=== PATIENT | female | born 1975 | race Caucasian/White ===

== ENCOUNTER 2024-05-09 07:28 | Day surgery (SDC) | payer BC ==
[~2024-05-09] VITALS: Ht 180.3 cm; Wt 68.2 kg
[~2024-05-09 07:28] MED LIST: IBLOOD GLUCOSE TEST STRIP 1 EA TEST VI PRN; LACTATED RINGER'S 1,000 ML IV SCH; LIDOCAINE HCL 1% 5 ML SDV INJ ONE; MIDAZOLAM HCL 5 MG/5 ML VIAL IV PRN; fentaNYL citrate 100 MCG/2 ML VIAL IV PRN
[2024-05-09] MEDS ORDERED: MIDAZOLAM HCL 5 MG/5 ML VIAL ONE (08:37)
[2024-05-09] MEDS ORDERED: fentaNYL citrate 100 MCG/2 ML VIAL ONE (08:38)
--- NOTE | 2024-05-09 09:23 | NUR ---
05/09/24 0923 Zaira,Torri 0917 PT ARRIVED TO PACU ON 2L VIA NC, PT WAKES EASILY AND DENIES CONCERNS. PT ENCOURAGED TO PASS GAS NEEDED.
[2024-05-09 09:41] VITALS: BP 99/67
--- NOTE | 2024-05-11 11:05 | OR ---
[facility] [address], [place] [address] Signed DATE OF OPERATION: 05/09/2024 SURGEON: Bao Shell MD PREOPERATIVE DIAGNOSIS: Colon screening. POSTOPERATIVE DIAGNOSIS: Small non-polyp nodule, right colon (excised). PROCEDURE: Total colonoscopy to cecum with cold morcellation biopsy x1. ANESTHESIA: Intravenous sedation; fentanyl 150 mcg and Versed 5 mg. INDICATION: This 48-year-old white woman is in excellent health. She is a patient of [facility]BAST[facility] Solis. She is referred for screening colonoscopy having never undergone the procedure in the past. She has no symptoms of bleeding, diarrhea, or constipation and no family history of colon cancer. She is admitted at this time to undergo colonoscopy. She understands the risk of bleeding, infection, and perforation. FINDINGS: The prep was excellent. Complete colonoscopy was undertaken of the cecum with full intubation of the cecum. There was a small whitish plaque-like nodule at the proximal ascending colon, but no other finding of note. This lesion was excised. DESCRIPTION OF PROCEDURE: The patient was brought to the endoscopy suite and placed in the lateral decubitus position, given intravenous sedation to the point of slurred speech and nystagmus. Digital rectal examination was normal. An Olympus video colonoscope was passed in the rectum and manipulated throughout the colon ultimately intubating the cecum itself. The colon was somewhat redundant. The ileocecal valve and appendiceal orifice were normal, but in the proximal ascending colon there is a small whitish plaque of the mucosa of uncertain cause. It was excised with cold morcellation technique. Further withdrawal of the scope showed no other abnormality, specifically no polyps, diverticular formation, colitis, or cancer. Retroflexed view was normal as well. The scope was removed and the patient was taken to the recovery room in good condition. Electronically Signed By: BAO SHELL MD 05/11/24 1105 PATIENT NAME: BRIDGETT SANTOS OPERATIVE REPORT DATE OF : 77 REPORT #: [id number] PHYSICIAN: BAO SHELL MD PCP: LILY LASSITER REPORT IS CONFIDENTIAL AND NOT TO BE RELEASED WITHOUT AUTHORIZATION [facility] [address], [place] [address] Signed CONCLUDING DIAGNOSIS: Essentially normal colon; white plaque at proximal ascending colon, excised. PLAN: Would recommend repeat colonoscopy in 10 years, sooner if symptoms should develop. I will check her followup pathology on the biopsy lesion. She will return to the ongoing care of Lily Lassiter. MD HOLLY Orosco/NICCIL /[id number] cc: [facility]ST[facility] Solis Copies: LILY LASSITER ~ Electronically Signed By: BAO SHELL MD 05/11/24 1105 PATIENT NAME: BRIDGETT SANTOS OPERATIVE REPORT DATE OF : 77 REPORT #: [id number] PHYSICIAN: BAO SHELL MD PCP: LILY LASSITER REPORT IS CONFIDENTIAL AND NOT TO BE RELEASED WITHOUT AUTHORIZATION
--- NOTE | 2024-05-11 17:18 | PATH ---
[facility] [address] [place], [place] [address] Signed SPECIMEN(S): A ASCENDING/RIGHT COLON BIOPSY SPECIMEN SOURCE: A. ASCENDING/RIGHT COLON BIOPSY CLINICAL HISTORY: Pre: Initial screening colonoscopy. Post: Nodule right colon. FINAL PATHOLOGIC DIAGNOSIS: Ascending/right colon biopsy: - Benign colonic mucosa with reactive features, negative for dysplasia or pathologic inflammation. - Incidental mucosal lymphoid aggregate. JVR:hilaria MICROSCOPIC EXAMINATION: Histologic sections of all submitted blocks are examined by light microscopy. These findings, together with the gross examination, support the pathologic diagnosis. GROSS DESCRIPTION: The specimen, labeled and designated "Armenian, S, ascending right colon biopsy," is received in formalin and consists of four alcantara soft tissue fragments, ranging from 0.2-0.7 cm. Entirely submitted in (A1). HS (under the direct supervision of a pathologist) The Gross Description was prepared using a voice recognition system. The report was reviewed for accuracy; however, sound-alike word errors, addition and/or deletions may occur. If there is any question about this report, please contact Client Services. ADDITIONAL NOTES: Immunohistochemical and/or in situ hybridization studies if performed in this case included appropriate positive controls that reacted as expected. This test was developed and its performance characteristics determined by [employer]. It has not been cleared or approved by the U.S. Food and Drug Administration. The FDA has determined that such clearance or approval is not necessary. This test is used for clinical purposes. It should not be regarded as investigational or for research. [employer] is certified under the Clinical Laboratory Improvement PATIENT NAME: BRIDGETT SANTOS PATHOLOGY DATE OF : 77 REPORT #: [id number] PHYSICIAN: GEETA VALLECILLO PCP: LILY JAIMES REPORT IS CONFIDENTIAL AND NOT TO BE RELEASED WITHOUT AUTHORIZATION [place] [address] [facility] [place], [place] [address] Signed Amendments of 1988 (CLIA) as qualified to perform high complexity clinical laboratory testing. PERFORMING LABORATORY: Technical component was performed by [facility], [address] [place] [address] (CLIA# [id number]). Professional interpretation was performed by [facility], [address] [place] [id number] (CLIA#: [id number]). Diagnostician: Ryan Cazares MD Pathologist Electronically Signed 05/11/2024 Copies: ~ PATIENT NAME: BRIDGETT SANTOS PATHOLOGY DATE OF : [birth year] REPORT #: [id number] PHYSICIAN: GEETA VALLECILLO PCP: LILY JAIMES REPORT IS CONFIDENTIAL AND NOT TO BE RELEASED WITHOUT AUTHORIZATION
== END 2024-05-09 09:49 | disposition home or self-care (01) ==
LOC: OPS 07:28 → DS 07:29 → OPS 08:30 → DS 08:30 → OPS 09:49
PROVIDERS: ATTEND Surgery
PROC: 0DBK8ZX Excision of Ascending Colon, Via Natural or Artificial Opening Endoscopic, Diagnostic (ICD-10-PCS; principal; 2024-05-09)
DX: Z12.11 Encounter for screening for malignant neoplasm of colon (principal); K63.89 Other specified diseases of intestine; Z78.0 Asymptomatic menopausal state
CPT/HCPCS: 84703; 99153; G0500; J2250; J3010; J7121